=== PATIENT | male | born 1975 | race Two or more races ===

== ENCOUNTER 2021-03-30 06:15 | Emergency (ER) | payer OTHER ==
[~2021-03-30] VITALS: Ht 165.1 cm; Wt 97.0 kg
[2021-03-30 06:21] VITALS: BP 157/95
[2021-03-30] MEDS ORDERED: TETANUS, DIPHTHERIA, PERTUSSIS VAC/PF 0.5ML (>10YR OLD) IM ONE (06:45)
== END 2021-03-30 07:15 | disposition home or self-care (01) ==
LOC: ER 06:15
DX: S00.81XA Abrasion of other part of head, initial encounter (principal); W50.3XXA Accidental bite by another person, initial encounter; Y93.89 Activity, other specified; Y92.89 Other specified places as the place of occurrence of the external cause; Y99.8 Other external cause status
CPT/HCPCS: 73140; 90471; 90715; 99283

== ENCOUNTER → 2024-02-16 | Outpatient (CLI) | payer OTHER | END | disposition home or self-care (01) | LOC: MRI 07:13 | PROVIDERS: ATTEND Family Medicine Adult Medicine | DX: M77.11 Lateral epicondylitis, right elbow (principal); M25.521 Pain in right elbow | CPT/HCPCS: 73221 ==

== ENCOUNTER 2024-11-04 07:12 | Inpatient (IN) | payer BC, OTHER ==
[~2024-11-04] VITALS: Ht 165.1 cm; Wt 101.8 kg
[2024-11-04 07:16] VITALS: O2SAT 98
[2024-11-04 07:40] LABS: BASOPHILS % 1.3 % (0.0-2.0); EOSINOPHILS % 9.6 % (0.0-5.0); HEMATOCRIT. 47.5 % (42.0-52.0); HEMOGLOBIN. 15.9 g/dL (14.0-18.0); LYMPHOCYTES % 37.9 % (20.0-50.0); MEAN PLATELET VOLUME 8.7 fl (7.4-10.4); MONOCYTES % 9.3 % (2.0-8.0); NEUTROPHILS % 41.9 % (40.0-76.0); PLATELET 166 x1000/uL (130-400); RED BLOOD CELL COUNT 5.58 mill/uL (4.7-6.1); RED CELL DISTRIBUTION WIDTH 13.9 % (11.6-14.6)
[2024-11-04 07:58] LABS: CREATININE 1.0 mg/dL (0.6-1.3); UREA NITROGEN BLOOD 11 mg/dL (9-23)
[2024-11-04 07:59] LABS: TROPONIN I HIGH SENSITIVITY 29 ng/L (3.0-53)
[2024-11-04] MEDS: HYDRALAZINE 20MG/ML VIAL IV ONE (09:19)
[2024-11-04 09:28] LABS: TROPONIN I HIGH SENSITIVITY 29 ng/L (3.0-53)
[2024-11-04] MEDS: PANTOPRAZOLE SODIUM 40 MG/VIAL IV SCH (09:30)
[2024-11-04] MEDS ORDERED: ENALAPRIL 0.625 MG in DEXTROSE 5% WATER 49.5 ML IV PRN (09:45)
[2024-11-04] MEDS ORDERED: DOCUSATE SODIUM 100MG CAPSULE PO PRN (09:45)
[2024-11-04] MEDS ORDERED: ACETAMINOPHEN 325MG TABLET PO PRN ×2 (09:45)
[2024-11-04] MEDS ORDERED: CLONIDINE 0.1MG TABLET PO PRN (09:45)
[2024-11-04] MEDS ORDERED: IPRATROPIUM/ALBUTEROL 0.5-3(2.5)MG/3ML NEB HHN PRN (09:45)
[2024-11-04] MEDS ORDERED: DEXTROSE 50% WATER 50ML SYRINGE IV PRN (09:45)
[2024-11-04] MEDS ORDERED: MAGNESIUM/ALUMINUM HYDROXIDE/SIMETHICONE 30ML UDC PO PRN (09:45)
[2024-11-04] MEDS ORDERED: ONDANSETRON HCL 4MG/2ML INJ IV PRN (09:45)
[2024-11-04] MEDS ORDERED: GUAIFENESIN 200MG/10ML SUGAR FREE UDC PO PRN (09:45)
[2024-11-04] MEDS: SODIUM CHLORIDE 0.9% 1,000 ML IV ONE (09:51)
[2024-11-04] MEDS ORDERED: NITROGLYCERIN 0.4MG TABLET SL SL PRN (10:00)
[2024-11-04 10:11] LABS: *AMPHETAMINES SCREEN URINE NEGATIVE (NEGATIVE); *BARBITURATES SCREEN URINE NEGATIVE (NEGATIVE); *BENZODIAZEPINES SCREEN URINE NEGATIVE (NEGATIVE); *COCAINE SCREEN URINE NEGATIVE (NEGATIVE); CANNABINOID URINE SCREEN NEGATIVE (NEGATIVE); ECSTASY MDMA SCREEN URINE NEGATIVE (NEGATIVE); METHADONE URINE SCREEN NEGATIVE (NEGATIVE); OPIATES URINE SCREEN NEGATIVE (NEGATIVE); PHENCYCLIDINE URINE SCREEN NEGATIVE (NEGATIVE)
[2024-11-04 10:13] LABS: CREATINE KINASE MB FRACTION 2.6 ng/mL (0.5-3.6); LDL CHOLESTEROL 180 mg/dL (5-100); TRIGLYCERIDE 158 mg/dL (0-150)
[2024-11-04] MEDS ORDERED: ENALAPRIL 1.25MG/ML VIAL 1ML IV PRN (10:15)
[2024-11-04 10:24] VITALS: BP 170/103; PULSE 74; RESP 16; TEMP 36.14
[2024-11-04] MEDS: ASPIRIN 81MG TABLET PO SCH (10:40)
[2024-11-04] MEDS: HYDRALAZINE 20MG/ML VIAL IV PRN (10:40)
[2024-11-04 12:00] VITALS: BP 140/90; PULSE 73; RESP 18; TEMP 36.5; O2SAT 98
[2024-11-04 12:12] LABS: HEPATITIS C AB NON REACTIVE (Neg) (Negative)
[2024-11-04] MEDS: BLOOD SUGAR DIAGNOSTIC STRIP TEST SCH (12:40)
[2024-11-04] MEDS: INSULIN LISPRO 100 UNITS/ML SUBCUT SCH (12:40)
[2024-11-04] MEDS: AMLODIPINE 5MG TABLET PO SCH (14:41)
[2024-11-04] MEDS: KETOROLAC 15MG/ML VIAL IV PRN (14:42)
[2024-11-04 16:00] VITALS: BP 128/84; PULSE 80; RESP 18; TEMP 36.5; O2SAT 98
[2024-11-04 19:13] LABS: TROPONIN I HIGH SENSITIVITY 28 ng/L (3.0-53)
[2024-11-04 20:00] VITALS: BP 143/84; PULSE 74; RESP 20; TEMP 37; O2SAT 98
[2024-11-04] MEDS ORDERED: AMLODIPINE 5MG TABLET PO SCH ×2 (21:00)
[2024-11-04] MEDS: ATORVASTATIN CALCIUM 40MG TABLET PO SCH (21:42)
[2024-11-04 23:14] LABS: TROPONIN I HIGH SENSITIVITY 28 ng/L (3.0-53)
[2024-11-05] VITALS: BP 139/79; PULSE 71; RESP 20; TEMP 36.7; O2SAT 98
[2024-11-05 04:00] VITALS: BP_SYST 143; BP_SYST 144; BP_SYST 147; BP_DIAS 89; BP_DIAS 92; BP_DIAS 94; PULSE 75; RESP 19; TEMP 36.9; O2SAT 97
[2024-11-05 06:13] LABS: CREATININE 0.9 mg/dL (0.6-1.3); T4 FREE 1.30 ng/dL (0.89-1.76); UREA NITROGEN BLOOD 11 mg/dL (9-23)
[2024-11-05 06:16] LABS: PHOSPHORUS 3.5 mg/dL (2.5-4.9)
[2024-11-05 06:32] LABS: BASOPHILS % 1.0 % (0.0-2.0); EOSINOPHILS % 9.1 % (0.0-5.0); HEMATOCRIT. 47.1 % (42.0-52.0); HEMOGLOBIN. 16.0 g/dL (14.0-18.0); LYMPHOCYTES % 37.1 % (20.0-50.0); MEAN PLATELET VOLUME 9.4 fl (7.4-10.4); MONOCYTES % 8.2 % (2.0-8.0); NEUTROPHILS % 44.6 % (40.0-76.0); PLATELET 165 x1000/uL (130-400); RED BLOOD CELL COUNT 5.60 mill/uL (4.7-6.1); RED CELL DISTRIBUTION WIDTH 13.9 % (11.6-14.6)
[2024-11-05 08:00] VITALS: BP 147/93; PULSE 75; RESP 15; TEMP 36.5; O2SAT 96
[2024-11-05 09:28] LABS: ASPARTATE AMINOTRANSFERASE 49 IU/L (<34)
[2024-11-05 09:29] LABS: BILIRUBIN DIRECT 0.2 mg/dL (<=3.0); BILIRUBIN TOTAL 0.9 mg/dL (0.1-1.0); PROTEIN TOTAL 6.8 g/dL (6.0-8.3)
[2024-11-05] MEDS: MULTIVITAMINS,THER W-MINERALS TABLET PO SCH (10:06)
[2024-11-05 12:42] VITALS: BP 143/96; PULSE 77; RESP 14; TEMP 36.6; O2SAT 95
[2024-11-05] MEDS ORDERED: ASPI-1160 PO (14:37)
[2024-11-05] MEDS ORDERED: ATOR20TA65 MT (14:37)
[2024-11-05] MEDS ORDERED: TOPUD PO (14:37)
[2024-11-05] MEDS ORDERED: AMLO5TAB88 PO (14:37)
[2024-11-05 15:34] VITALS: BP 129/82; PULSE 72; RESP 18; TEMP 98.3
[2024-11-05 16:00] VITALS: BP 129/89; PULSE 79; RESP 16; TEMP 36.9; O2SAT 97
== END 2024-11-05 16:45 | disposition home or self-care (01) | DRG 305 ==
LOC: ER 07:12 → 8WST 09:07 → EDBEDREQTM 09:12 → EDBEDREQ 09:12 → ENRESERV 09:23
PROVIDERS: ADMIT Internal Medicine; ATTEND Internal Medicine
DX: I16.1 Hypertensive emergency (principal); E66.9 Obesity, unspecified; Z68.37 Body mass index [BMI] 37.0-37.9, adult; R73.9 Hyperglycemia, unspecified; E78.00 Pure hypercholesterolemia, unspecified; G47.33 Obstructive sleep apnea (adult) (pediatric); I10 Essential (primary) hypertension; F17.200 Nicotine dependence, unspecified, uncomplicated; Z91.148 Patient's other noncompliance with medication regimen for other reason
CPT/HCPCS: 36415; 71045; 80048; 80061; 80076; 80305; 82550; 82553; 82962; 83036; 83735; 83880; 84100; 84439; 84443; 84484; 85025; 85379; 86705; 87340; 93005; 99285; A4606; J0360; J1885; J2470; J7030

== ENCOUNTER → 2024-11-26 | Outpatient (CLI) | payer BC ==
[~2024-11-26] MED LIST: AMLO5TAB88 PO; ASPI-1160 PO; ATOR20TA65 MT; TOPUD PO
[2024-11-26 09:01] LABS: CLARITY URINE CLEAR (CLEAR); COLOR URINE YELLOW (YELLOW); GLUCOSE URINE NEGATIVE (NEGATIVE); KETONES URINE NEGATIVE (NEGATIVE); LEUKOCYTE ESTERASE URINE NEGATIVE (NEGATIVE); NITRITE URINE NEGATIVE (NEGATIVE); OCCULT BLOOD URINE NEGATIVE (NEGATIVE); PH URINE 6.0 (4.5-8.0); PROTEIN URINE NEGATIVE (NEGATIVE); SPECIFIC GRAVITY URINE 1.017 (1.005-1.030); UROBILINOGEN URINE 0.2 E.U./dL (0.2-1.0)
[2024-11-26 10:16] LABS: BASOPHILS % 1.1 % (0.0-2.0); EOSINOPHILS % 6.6 % (0.0-5.0); HEMATOCRIT. 46.1 % (42.0-52.0); HEMOGLOBIN. 15.6 g/dL (14.0-18.0); LYMPHOCYTES % 33.9 % (20.0-50.0); MEAN PLATELET VOLUME 8.8 fl (7.4-10.4); MONOCYTES % 6.7 % (2.0-8.0); NEUTROPHILS % 51.7 % (40.0-76.0); PLATELET 184 x1000/uL (130-400); RED BLOOD CELL COUNT 5.50 mill/uL (4.7-6.1); RED CELL DISTRIBUTION WIDTH 13.7 % (11.6-14.6)
[2024-11-26 10:56] LABS: CREATININE 0.9 mg/dL (0.6-1.3); TRIGLYCERIDE 82 mg/dL (0-150); UREA NITROGEN BLOOD 9 mg/dL (9-23)
[2024-11-26 10:57] LABS: LDL CHOLESTEROL 90 mg/dL (5-100)
[2024-11-26 10:58] LABS: ASPARTATE AMINOTRANSFERASE 49 IU/L (<34); BILIRUBIN TOTAL 0.7 mg/dL (0.1-1.0); PROTEIN TOTAL 7.3 g/dL (6.0-8.3)
[2024-11-27 08:10] LABS: *CREATININE RANDOM URINE 152.3 mg/dL (Not Estab.); MICROALBUMIN RANDOM URINE 3.4 ug/mL (Not Estab.); MICROALBUMIN/CREATININE RATIO 2.0 mg/g creat (0-29)
[2024-11-28 09:10] LABS: PROSTATE SPECIFIC AG TOTAL 0.4 ng/mL (0.0-4.0); T4 THYROXINE 10.0 ug/dL (4.5-12.0)
[2024-11-28 10:11] LABS: VITAMIN D 25-OH 74.4 ng/mL (30.0-100.0)
== END | disposition home or self-care (01) ==
LOC: LAB 06:10
DX: R97.20 Elevated prostate specific antigen [PSA] (principal); E11.9 Type 2 diabetes mellitus without complications; E03.9 Hypothyroidism, unspecified; E78.00 Pure hypercholesterolemia, unspecified; E55.9 Vitamin D deficiency, unspecified; D64.9 Anemia, unspecified
CPT/HCPCS: 36415; 80053; 80061; 81003; 82043; 82306; 82570; 83036; 84153; 84436; 84443; 85025

== ENCOUNTER → 2025-01-08 | Outpatient (CLI) | payer BC ==
[2025-01-08 11:06] LABS: BASOPHILS % 0.8 % (0.0-2.0); EOSINOPHILS % 6.6 % (0.0-5.0); HEMATOCRIT. 47.6 % (42.0-52.0); HEMOGLOBIN. 16.0 g/dL (14.0-18.0); LYMPHOCYTES % 34.1 % (20.0-50.0); MEAN PLATELET VOLUME 8.8 fl (7.4-10.4); MONOCYTES % 8.3 % (2.0-8.0); NEUTROPHILS % 50.2 % (40.0-76.0); PLATELET 181 x1000/uL (130-400); RED BLOOD CELL COUNT 5.56 mill/uL (4.7-6.1); RED CELL DISTRIBUTION WIDTH 13.7 % (11.6-14.6)
[2025-01-08 11:19] LABS: CLARITY URINE CLEAR (CLEAR); COLOR URINE YELLOW (YELLOW); GLUCOSE URINE NEGATIVE (NEGATIVE); KETONES URINE NEGATIVE (NEGATIVE); LEUKOCYTE ESTERASE URINE NEGATIVE (NEGATIVE); NITRITE URINE NEGATIVE (NEGATIVE); OCCULT BLOOD URINE NEGATIVE (NEGATIVE); PH URINE 6.5 (4.5-8.0); PROTEIN URINE NEGATIVE (NEGATIVE); SPECIFIC GRAVITY URINE 1.017 (1.005-1.030); UROBILINOGEN URINE 0.2 E.U./dL (0.2-1.0)
[2025-01-08 11:24] LABS: CREATININE 0.9 mg/dL (0.6-1.3); TRIGLYCERIDE 103 mg/dL (0-150); UREA NITROGEN BLOOD 8 mg/dL (9-23)
[2025-01-08 11:25] LABS: LDL CHOLESTEROL 96 mg/dL (5-100)
[2025-01-08 11:26] LABS: ASPARTATE AMINOTRANSFERASE 41 IU/L (<34)
[2025-01-08 11:27] LABS: BILIRUBIN TOTAL 0.9 mg/dL (0.1-1.0); PROTEIN TOTAL 7.3 g/dL (6.0-8.3)
== END | disposition home or self-care (01) ==
LOC: LAB 10:08
PROVIDERS: ATTEND Internal Medicine Nephrology
DX: Z00.00 Encounter for general adult medical examination without abnormal findings (principal); Z79.899 Other long term (current) drug therapy
CPT/HCPCS: 36415; 80053; 80061; 81001; 81003; 83036; 85025